=== PATIENT | male | born 1965 | race Caucasian/White ===

== ENCOUNTER 2024-05-29 15:10 | Outpatient (REF) | payer OTHER, SELFPAY | END 2024-05-29 15:11 | disposition home or self-care (01) | LOC: HO.WCC 15:10 | PROVIDERS: Visit Provider Surgery | DX: L08.89 Other specified local infections of the skin and subcutaneous tissue (principal); B95.61 Methicillin susceptible Staphylococcus aureus infection as the cause of diseases classified elsewhere | CPT/HCPCS: 87070; 87077; 87186; 87205 ==

== ENCOUNTER 2024-11-20 14:33 | Outpatient (RCR) | payer OTHER, SELFPAY | END 2024-11-20 16:44 | disposition home or self-care (01) | LOC: HO.WCC 14:33 | PROVIDERS: PCP Internal Medicine; Visit Provider Colon & Rectal Surgery | DX: I87.031 Postthrombotic syndrome with ulcer and inflammation of right lower extremity (principal); L97.312 Non-pressure chronic ulcer of right ankle with fat layer exposed; I87.2 Venous insufficiency (chronic) (peripheral); G72.41 Inclusion body myositis [IBM] | CPT/HCPCS: 11042; 11045; 97597; 97602; 99212; 99213 ==